=== PATIENT | female | born 1980 ===

== ENCOUNTER 2017-05-25 10:31 | Emergency (ER) | payer OTHER, SELFPAY ==
[2017-05-25 10:47] VITALS: BMI 43.9
[2017-05-25 12:19] LABS: BASO % 0.4 % (0.0-2.0); EOS # 1.5 K/uL (0.0-0.7); EOS % 13.8 % (0.0-4.0); HEMOGLOBIN 12.5 g/dL (12.0-16.0); LYMPH # 1.6 K/uL (1.0-4.3); LYMPH % 14.9 % (20.0-40.0); MEAN CELL VOLUME 90.5 fl (81.0-99.0); MEAN CORPUSCULAR HEMOGLOBIN 31.7 pg (27.0-31.0); MEAN PLATELET VOLUME 8.4 fl (7.2-11.7); MONO # 0.5 K/uL (0.0-0.8); MONO % 4.4 % (0.0-10.0); NEUT # 7.2 K/uL (1.8-7.0); NEUT % 66.5 % (50.0-75.0); RBC 3.94 Mil/uL (3.80-5.20); RED CELL DISTRIBUTION WIDTH 12.6 % (11.5-14.5); WHITE BLOOD COUNT 10.8 K/uL (4.8-10.8)
[2017-05-25 13:39] LABS: SQUAMOUS EPITHIAL 1 /hpf (0-5); URINE BACTERIA RARE (<OCC); URINE BILIRUBIN NEGATIVE (NEGATIVE); URINE BLOOD NEGATIVE (NEGATIVE); URINE CLARITY CLEAR (Clear); URINE COLOR YELLOW (YELLOW); URINE GLUCOSE (UA) NEG (Normal); URINE LEUKOCYTE ESTERASE TRACE Leu/uL (Negative); URINE NITRATE NEGATIVE (NEGATIVE); URINE PROTEIN NEGATIVE (NEGATIVE); URINE UROBILINOGEN 0.2-1.0 mg/dL (0.2-1.0)
--- NOTE | 2017-05-25 16:50 | OBHP ---
Datetime: 05/25/2017 11:17 IP Adm Impression: Term, intrauterine IP Chief Complaint Other: lower abdominal discomfort x 2 days and dysuria x 1 day IP Admit Plan: Observation/Evaluation Admit Comment, IP Provider: 37 yo at 28.1 weeks of gestational age by LMP 11/09/16, with no pr enatal care presents to OB ED w/ complaints of lower abdominal discomfort more prominent in LLQ x 2 d ays and mild dysuria x 1 day. pt reports LLQ pain was 9/10 when started and now rates it 3/10. pt did not go for any care because she is undocumented. denies BV, SROM or contraction. reports + movement. denies fever, chills, nausea, vomiting or flank pain. had 2 vaginal full term deliver ies with no complications as per pt in [place] in 1996 and 2000. pt reports she gained approximately 40 lbs since the . 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 medications: none allergies: NKDA assessement: 37 yo IUP at 28.1 weeks by LMP 11/09/2016. Plan: heart monitor UA rapid HIV Limited US type and screen random glucose advised pt to maintain healthy weight and to avoid bread, rice, juice and sugary drink. advised to eat fruits and vegetables. Case presented and discussed with on-call attending Dr. Avila. Sultan Islas, PGY1 OB[facility] ADDENDUM: pt seen _ examined by me. agree with above assessment and plan. p: pt will f[facility] care. pt at increased risk for gdm. pt advised of risk of no care and increased risk to fetus w ith maternal gdm and ama. risk of , childhood obesity d/w pt. she states she will f/u for care. Pelvic Type - PN: Adequate Extremities - PN: Normal Abdomen - PN: Normal Back - PN: Normal Lungs - PN: Normal Heart - PN: Normal Neurologic - PN: Normal HEENT - PN: Normal General - PN: Normal FHR - Baseline A Provider: 140 Contraction Comments Provider: no Comments, ACOG Physical Exam: Abdomen: + BS, non-tender, no rebound tenderness or guarding. back: no CVA tenderness. obus: kennedi 15.6; efw 706g; ega 24wks cvx: 4.16cm ua: neg EGA AdmitDate IP: 25.0 Vital Signs Provider: Reviewed IP Chief Complaint: Maternal discomfort NICHD Variability Prov Fetus A: Moderate 6-25bpm NICHD Accel Fetus A IP Provider: 10X10 FHR Category Provider Fetus A: Category I NICHD Decel Fetus A IP Provider: None Dilatation, Provider: 0 Effacement, Provider: 0 Station, Provider: -4 Genitourinary Exam: Normal
--- NOTE | 2017-05-25 17:21 | US ---
Indication: No care Comparison: None available. Technique: Real-time ultrasound was performed through the pelvis. Findings: There is a single living fetus in transverse presentation. Amniotic fluid volume is within normal limits. Posterior placenta. The placenta is not previa. There are no adnexal masses or cysts evident. Cervix length measures approximately 4.2 cm. Measurements and calculations: Fetus has a composite sonographic age of 24 weeks 5 days. This calculation is based on the biparietal diameter, head circumference, abdominal circumference, and femur length. Estimated heart rate 146.3 beats per min. Impression: Single living fetus with a composite sonographic age of 24 weeks 5 days. Estimated heart rate 146.3 beats per min. The study was performed emergent evaluation, and the whole anatomic survey of the fetus was not performed. This should be performed on an outpatient elective basis as clinically warranted.
== END 2017-05-25 16:45 | disposition home or self-care (01) ==
LOC: H.EROB2 10:31
DX: O26.93 Pregnancy related conditions, unspecified, third trimester (principal); R10.32 Left lower quadrant pain; O09.523 Supervision of elderly multigravida, third trimester; Z3A.38 38 weeks gestation of pregnancy

== ENCOUNTER 2017-09-15 11:32 | Inpatient (IN) | payer MEDICAID, SELFPAY ==
[2017-09-15 19:50] VITALS: BMI 39.3
[2017-09-15] MEDS ORDERED: Lactated Ringer's 1,000 ML IV SCH ×2 (20:00)
[2017-09-15 20:21] LABS: BASO % 0.3 % (0.0-2.0); EOS # 1.1 K/uL (0.0-0.7); EOS % 9.2 % (0.0-4.0); HEMATOCRIT 38.5 % (34.0-47.0); LYMPH # 2.4 K/uL (1.0-4.3); LYMPH % 19.4 % (20.0-40.0); MEAN CELL VOLUME 91.9 fl (81.0-99.0); MEAN CORPUSCULAR HEMOGLOBIN 31.4 pg (27.0-31.0); MEAN CORPUSCULAR HGB CONC 34.1 g/dL (33.0-37.0); MEAN PLATELET VOLUME 8.9 fl (7.2-11.7); MONO # 0.8 K/uL (0.0-0.8); MONO % 6.3 % (0.0-10.0); NEUT # 7.9 K/uL (1.8-7.0); NEUT % 64.8 % (50.0-75.0); NRBC % 0.1 % (0.0-0.0); RED CELL DISTRIBUTION WIDTH 12.8 % (11.5-14.5); WHITE BLOOD COUNT 12.2 K/uL (4.8-10.8)
[2017-09-16 00:43] VITALS: RESP 18
--- NOTE | 2017-09-16 03:56 | OBPN ---
Datetime: 09/15/2017 21:13 IP Procedures Other: Cervidil placed IP Progress Impression: Normal progression of labor IP Progress Plan: Continue present management FHR - Baseline A Provider: 150 IP Progress Note Comment: 37 YO @ 40.6wks IUP ([facility] 09/09/17) is admitted for IOL. Pt is doing well, NAD. No ctx, no LOF, no VB, + FM Cervidil placed at 21:05 Pt tolerating it well. Will continue to observe and monitor the progression of labor. Yessenia Moran, PGY I Vital Signs Provider: Reviewed; Within Normal Limits NICHD Accel Fetus A IP Provider: 15X15 FHR Category Provider Fetus A: Category I NICHD Variability Prov Fetus A: Moderate 6-25bpm Dilatation, Provider: 1 Effacement, Provider: long Station, Provider: -3 Datetime: 05/25/2017 11:17 Contraction Comments Provider: no NICHD Decel Fetus A IP Provider: None
[2017-09-16] MEDS ORDERED: Nalbuphine 20 mg/ml Inj (1 ml) ONE (09:00)
[2017-09-16] MEDS ORDERED: Oxytocin 30 UNITS in Sodium Chloride 0.9% 500 ML IV ONE (10:38)
[2017-09-16] MEDS ORDERED: Oxycodone/Acetaminophen 5/325 mg Tab PO PRN (17:08)
--- NOTE | 2017-09-16 17:28 | OBDS ---
DELIVERY PERSONNEL Delivery Doctor: Cassandra Grigsby MD Television Installer: Madeleine/Scarlett MATERNAL INFORMATION Delivery Anesthesia: None Medications in Delivery: Pitocin Estimated Blood Loss (ml): 150 Placenta Cultured: No Maternal Complications: None Provider Comments: Delivered live baby boy at 4:57 PM the baby was bulb suctioned on the perineum th en transferred to maternal chest. The cord was clamped and cut and 3 vessels noted, cord blood was ob tained and sent to the lab. Placenta was delivered at 5 PM intact, the estimated blood loss was 100 m L. Pitocin was infused to assist in uterine involution. The mother tolerated the procedure well there were no vaginal lacerations. The patient was to the well-baby nursery weighing 3700 g and Apgars of 9 and 9 LABOR SUMMARY EDC: 09/09/2017 00:00 No. Babies in Womb: 1 Attempted: No Labor Anesthesia: None LABOR INFORMATION Reason for Induction: Postterm Onset of Labor: 09/16/2017 13:00 Cervical Ripening Agents: Cervidil Oxytocin: Augmentation Group B Beta Strep: Negative Antibiotics # of Doses: n/a Antibiotics Time of Last Dose: n/a Steroids Given: None Reason Steroids Not Administered: Not Applicable MEMBRANES Membranes Rupture Method: Artificial Rupture of Membranes: 09/16/2017 10:18 Length of Rupture (hrs): 6.65 Amniotic Fluid Color: Clear Amniotic Fluid Amount: Large Amniotic Fluid Odor: Normal STAGES OF LABOR Stage 3 hrs: 0 Stage 3 min: 3 Total Time in Labor hrs: 4 Total Time in Labor min: 0 VAGINAL DELIVERY Episiotomy: None Laceration Extension: N/A Laceration Type: None Laceration Repair: Not Applicable Initial Vag Sponge Count: laps=5 Final Vag Sponge Count: laps=5 Initial Vag Sharps Count: 0 Final Vag Sharps Count: 0 Sponge Count Correct: Yes Sharps Count Correct: N/A BABY A INFORMATION Delivery Date/Time: 09/16/2017 16:57 Method of Delivery: Vaginal Born in Route : No : N/A Forceps: N/A Vacuum Extraction: N/A Shoulder Dystocia : Yes SHOULDER DYSTOCIA BABY A Delivery Date/Time: 09/16/2017 16:57 PRESENTATION/POSITION BABY A Presentation: Cephalic Cephalic Presentation: Vertex Breech Presentation: N/A PLACENTA INFORMATION BABY A Placenta Delivery Time : 09/16/2017 17:00 Placenta Method of Delivery: Spontaneous Placenta Status: Delivered SCORES BABY A Heart Rate 1 min: >100 bpm Resp Effort 1 min: Good Cry Reflex Irritability 1 min: Cough or Sneeze or Pulls Away Muscle Tone 1 min: Active Motion Color 1 min: Body Portia, Extremities Blue Resuscitation Effort 1 min: Tactile Stimulation SCORE 1 MIN: 9 Heart Rate 5 min: >100 bpm Resp Effort 5 min: Good Cry Reflex Irritability 5 min: Cough or Sneeze or Pulls Away Muscle Tone 5 min: Active Motion Color 5 min: Body Portia, Extremities Blue Resuscitation Effort 5 min: N/A SCORE 5 MIN: 9 INFORMATION BABY A Gestational Age at Delivery: 41.0 Gestational Status: Post-term Outcome : Liveborn Infant Condition : Stable Infant Sex: Male IDENTIFICATION/MEDS BABY A ID Band Number: [id number] ID Band Location: Left Leg; Left Arm Vitamin K Given : Not Given Erythromycin Given: Not Given WEIGHT/LENGTH BABY A Birthweight (gms): 3700 Infant Weight (lb): 8 Infant Weight (oz): 2 CORD INFORMATION BABY A No. Cord Vessels: 3 Nuchal Cord : N/A Nuchal Cord Other: n/a True Knot: n/a Infant Cord pH Baby Arterial: n/a Cord pH Baby Venous: n/a Cord Blood Taken: Yes Banking/Donate Info: n/a Infant Suction: Mouth; Nose ASSESSMENT BABY A Infant Complications: None Physical Findings at Delivery: [place] Citizen Spots Physical Findings Other: japanese spot on left leg Respirations: Appears Normal Herpetology Teacher/ALS Called : No Infant Care By: Madeleine/Scarlett
[2017-09-17 06:38] LABS: HEMATOCRIT 28.3 % (34.0-47.0); MEAN CELL VOLUME 91.3 fl (81.0-99.0); MEAN CORPUSCULAR HEMOGLOBIN 32.8 pg (27.0-31.0); MEAN CORPUSCULAR HGB CONC 35.9 g/dL (33.0-37.0); WHITE BLOOD COUNT 12.5 K/uL (4.8-10.8)
--- NOTE | 2017-09-18 09:40 | OBPPN ---
Datetime: 09/18/2017 07:06 PP Pain Prov: Within normal limits PP Nausea Prov: Denies PP Flatus Prov: Yes PP BM Prov: Yes PP Breasts Prov: Normal PP Heart Prov: Normal PP Lungs Prov: Normal PP Abdomen/Uterus Prov: Normal PP Lochia Prov: Normal PP Vulva/Perineum Prov: Normal PP CVA Tenderness Prov: Not Done PP Extremities Prov: Normal PP C/S Incision Prov: Not Applicable PP Progress Prov: Normal PP Impression Prov: Normal progression PP Plan Prov: Continue present management; Discharge PP Progress Note Prov: S: pt seen and examined bedside this AM. PPD2, s/p NVD. No acute overnight ev ents. No pelvic pain and is ambulating w/o any difficulties. Breast feeding baby. Tolerating PO diet and lochia is similar to light menses, voiding without any difficulties. +/+ gas, BM. Denies fever, c hills, headache, chest pain, dyspnea, palpitations, n/v/d/c and remains afebrile. MDdatacor used for translation, [id number] O: VS stable GEN: NAD Cardio: S1S2 no M/G/R Resp: vesicular breathing b/l Abdomen: NT to palpation. Fundus below the umbilicus and firm. BS+ Neuro: AAO x 3 Ext: no edema noted, no calf tenderness Assessment/Plan: 37 YO delivered @ 40.6wks to a baby boy via NVD on 09/16/17. Doing well PPD2. OOB with caution SCD's for DVT prophylaxis, ambulating Toradol for severe pain Ibuprofen 600mg 1 tab for mild/moderate pain Encourage and ambulation Senakot 17.2mg PO qHS Will d/c home today with follow up Yessenia Moran, PGY I Vital Signs Provider PP: Reviewed; Within Normal Limits
--- NOTE | 2017-09-18 18:14 | OBDCSUM ---
Datetime: 09/18/2017 07:09 Discharged to, Provider: Home Follow up at, Provider: [facility] Disch Instr Activity: Normal activity; May be up to bathroom; May be up for meals; May Shower Disch Instr Diet: Regular Discharge Instructions, Provider: Routine instructions given Discharge Diagnosis, Provider: Term Delivered Discharge Time: 09/18/2017 02:00 Follow up in weeks, Provider: 6wks Disch Referrals: None Contraception discussed, Prov: Yes Disch Activity Restrictions: No exercising; No lifting; Minimize walking; Minimize stair-climbing; N o sexual activity; Nothing in vagina - [place], tampons, douche Discharge Comment, Provider: 37 YO delivered @ 40.6wks to a baby boy via NVD on 09/16/17. Uncomp licated course. Lochia is minimal, pt is ambulating, tolerating PO diet, and remains afebr ile. MMR ordered for today. 1. Encourage 2. PNV 1 tab po q/day 3. Ibuprofen for moderate/severe pain. Colace for constipation. 4. Ambulatory with caution, nothing per vagina, no heavy lifting, avoid stairs, if excessive bleed ing or fever without relief from Tylenol go to ED 5. F/U at [facility] PP 10/20/17 @ 1:45 Baby 09/20/17 @ 3:20 Yessenia Moran, PGY I Contraception after Delivery: Undecided
--- NOTE | 2017-09-18 18:15 | OBPPN ---
Datetime: 09/18/2017 07:06 PP Progress Note Prov: S: pt seen and examined bedside this AM. PPD2, s/p NVD. No acute overnight ev ents. No pelvic pain and is ambulating w/o any difficulties. Breast feeding baby. Tolerating PO diet and lochia is similar to light menses, voiding without any difficulties. +/+ gas, BM. Denies fever, c hills, headache, chest pain, dyspnea, palpitations, n/v/d/c and remains afebrile. Reactivity used for translation, [id number] O: VS stable GEN: NAD Cardio: S1S2 no M/G/R Resp: vesicular breathing b/l Abdomen: NT to palpation. Fundus below the umbilicus and firm. BS+ Neuro: AAO x 3 Ext: no edema noted, no calf tenderness Assessment/Plan: 37 YO delivered @ 40.6wks to a baby boy via NVD on 09/16/17. Doing well PPD2. OOB with caution SCD's for DVT prophylaxis, ambulating Toradol for severe pain Ibuprofen 600mg 1 tab for mild/moderate pain Encourage and ambulation Senakot 17.2mg PO qHS Will d/c home today with follow up Yessenia Moran, PGY I OB attending addendum: Patient seen and examined by me. Agree with above assessment and plan. Benefits of breast-feeding reinforced.
[2017-09-18 20:20] VITALS: BP 129/81; PULSE 95; TEMP 97.6; O2SAT 97
== END 2017-09-18 15:00 | disposition home or self-care (01) | DRG 775 ==
LOC: H.L&D 19:49 → H.OB/GYN 09-16 21:36
PROVIDERS: ADMIT Obstetrics & Gynecology; ATTEND Obstetrics & Gynecology
PROC: 4A1HXCZ Monitoring of Products of Conception, Cardiac Rate, External Approach (ICD-10-PCS; 2017-09-15)
PROC: 10E0XZZ Delivery of Products of Conception, External Approach (ICD-10-PCS; principal; 2017-09-16)
PROC: 10907ZC Drainage of Amniotic Fluid, Therapeutic from Products of Conception, Via Natural or Artificial Opening (ICD-10-PCS; 2017-09-16)
PROC: 3E033VJ Introduction of Other Hormone into Peripheral Vein, Percutaneous Approach (ICD-10-PCS; 2017-09-16)
DX: O48.0 Post-term pregnancy (principal); O66.0 Obstructed labor due to shoulder dystocia; O09.523 Supervision of elderly multigravida, third trimester; Z3A.40 40 weeks gestation of pregnancy; Z37.0 Single live birth